=== PATIENT | female | born 1960 | race African-American/Black ===

== ENCOUNTER 2018-03-13 02:03 | Emergency (ER) | payer BC ==
[2018-03-13 02:36] LABS: APPEARANCE,URINE SLIGHTLY-CLOUDY; BILIRUBIN,URINE NEGATIVE (NEGATIVE); COLOR,URINE STRAW; GLUCOSE, URINE NEGATIVE (NEGATIVE); KETONES,URINE NEGATIVE (NEGATIVE); LEUKOCYTE ESTERASE,URINE LARGE (NEGATIVE); NITRITE,URINE NEGATIVE (NEGATIVE); PROTEIN,URINE NEGATIVE (NEGATIVE); URINE SPECIFIC GRAVITY 1.001; UROBILINOGEN,URINE NEGATIVE mg/dL (<2.0)
--- NOTE | 2018-03-13 03:23 | ER Document Report ---
ED General - General Chief Complaint: Urinary Frequency Stated Complaint: URINATION PROBLEM Time Seen by Provider: 03/13/18 02:25 Mode of Arrival: Ambulatory Information source: Patient TRAVEL OUTSIDE OF THE [place] IN LAST 30 DAYS: No - HPI Patient complains to provider of: Urinary urgency and frequency Onset: Other - There is a 57-year-old female that presents for evaluation of the sensation of urgency as well as some burning upon urinating for the last several days, she was previously treated for a yeast infection with the medication that she finished but without any improvement in her symptoms continue to have some burning upon urinating. She denies any fevers or chills, back pain, vomiting diarrhea constipation or other symptoms. - Related Data Allergies/Adverse Reactions: No Known Allergies Allergy (Unverified 04/07/13 08:11) Past Medical History - General Information source: Patient - Social History Smoking Status: Unknown if Ever Smoked Family History: Reviewed & Not Pertinent Patient has suicidal ideation: No Patient has homicidal ideation: No Endocrine Medical History: Reports: Hx Diabetes Mellitus Type 2 Renal/ Medical History: Denies: Hx Peritoneal Dialysis Past Surgical History: Reports: Hx Orthopedic Surgery - R wrist - Immunizations Hx Diphtheria, Pertussis, Tetanus Vaccination: Yes Review of Systems - Review of Systems -: Yes All other systems reviewed and negative Physical Exam - Vital signs Vitals: Temp Pulse Resp BP Pulse Ox 97.7 F 92 16 136/72 H 100 03/13/18 02:24 03/13/18 02:24 03/13/18 02:24 03/13/18 02:24 03/13/18 02:24 - General General appearance: Appears well, Alert - HEENT Head: Normocephalic, Atraumatic Eyes: Normal Pupils: PERRL - Respiratory Respiratory status: No respiratory distress Chest status: Nontender Breath sounds: Normal Chest palpation: Normal - Cardiovascular Rhythm: Regular Heart sounds: Normal auscultation Murmur: No - Abdominal Inspection: Normal Distension: No distension Bowel sounds: Normal Tenderness: Nontender Organomegaly: No organomegaly - Back Back: Normal, Nontender - Extremities General upper extremity: Normal inspection, Nontender, Normal color, Normal ROM , Normal temperature General lower extremity: Normal inspection, Nontender, Normal color, Normal ROM , Normal temperature, Normal weight bearing. No: Leeanne's sign - Neurological Neuro grossly intact: Yes Cognition: Normal Orientation: AAOx4 [place] Coma Scale Eye Opening: Spontaneous [place] Coma Scale Verbal: Oriented [place] Coma Scale Motor: Obeys Commands [place] Coma Scale Total: 15 Speech: Normal Motor strength normal: LUE, RUE, LLE, RLE Sensory: Normal - Psychological Associated symptoms: Normal affect, Normal mood Course - Re-evaluation Re-evalutation: 03/13/18 03:31 Here is a 57-year-old female that presents for urinary frequency and urgency. Denies any systemic signs of infection. Had a urinalysis drawn which does demonstrate what appears to be some signs of urinary tract infection. We will presumptively treat for cystitis do not believe this represents pyelonephritis or some other more serious condition. The patient will be discharged with a prescription for ciprofloxacin as well as Pyridium. She will be given encouraged follow-up with her primary physician. - Vital Signs Vital signs: Temp Pulse Resp BP Pulse Ox 97.7 F 92 16 136/72 H 100 03/13/18 02:24 03/13/18 02:24 03/13/18 02:24 03/13/18 02:24 03/13/18 02:24 - Laboratory Laboratory results interpreted by me: 03/13/18 02:10 Urine Blood LARGE H Ur Leukocyte Esterase LARGE H Discharge - Discharge Clinical Impression: Cystitis Condition: Good Disposition: HOME, SELF-CARE Instructions: Urinary Tract Infection ([facility]) Additional Instructions: You were seen today in the emergency department for urinary tract infection. You had a physical exam as well as a urine test. You are given an antibiotic, you should start to feel better in 2-3 days. Use the medication prescribed to you as directed. Return for worsening fevers or chills, if you begin to have vomiting or other symptoms. 1 of the medications will likely turn your urine orange. This is okay. Prescriptions: Ciprofloxacin HCl [Cipro 500 mg Tablet] 500 mg PO BID 7 Days #10 tablet Phenazopyridine HCl [Pyridium 200 mg Tablet] 200 mg PO TID #15 tablet Referrals: FAROOQ ROJO MD [[facility]ED STAFF] - Follow up as needed
[2018-03-13] MEDS ORDERED: CIPROFLOXACIN HCL 500 MG TABLET PO ONE (03:25)
[2018-03-13] MEDS ORDERED: PHENAZOPYRIDINE HCL 200 MG TABLET PO ONE (03:26)
[2018-03-13 03:34] VITALS: BP 136/79
== END 2018-03-13 03:37 | disposition home or self-care (01) ==
LOC: ER 02:03
DX: N30.90 Cystitis, unspecified without hematuria (principal); R35.0 Frequency of micturition; E11.9 Type 2 diabetes mellitus without complications
CPT/HCPCS: 99283; 81001; J3490